=== PATIENT | female | born 1985 | race Caucasian/White ===

== ENCOUNTER 2024-03-26 18:35 | Emergency (ER) | payer OTHER, SELFPAY ==
--- NOTE | ~2024-03-26 | CT_ITS ---
EXAMINATION: CT abdomen pelvis wo con DATE: 03/26/2024 19:33 INDICATION: Bladder stones presenting with urinary symptoms TECHNIQUE: Computed tomography (CT) of the abdomen and pelvis was performed without intravenous contr ast. Automated exposure control and iterative reconstruction technique were employed. The dose-length product was 1588.18 mGy-cm. COMPARISON: None FINDINGS: Minimal discoid atelectasis at the lingula, right middle and left lower lobes. Heart size is normal. Atherosclerotic coronary artery calcifications likely also with stenting along the right coronary art ruddy. No pericardial or pleural effusion. Cholecystectomy clips the gallbladder fossa. Liver, spleen, pancreas and bilateral adrenal glands are normal. Kidneys and ureters are normal with no urolithiasis , hydroureteronephrosis or perinephric/ureteral stranding. Bladder is normal. IUD in expected positio n within the anteverted uterus. Bilateral ovaries are unremarkable. Bowels including the appendix are normal. No free intraperitoneal gas or fluid. No pathologically enlarged abdominal or pelvic lymphad enopathy. Mild thoracic and lumbar spondylosis. IMPRESSION: 1. No acute intra-abdominal/pelvic process. 2. IUD in expected position within the anteverted uterus. Reviewed, dictated and finalized at location A.
[2024-03-26 18:37] VITALS: BP 176/97; PULSE 70; RESP 18; TEMP 36.6; O2SAT 99
[2024-03-26 19:05] LABS: Basophils Percent Auto 0.4 % (0.2-1.2); Eosinophils Absolute Auto 0.2 K/mm3 (0-0.3); Eosinophils Percent Auto 1.7 % (0-4.4); Hematocrit 39.5 % (37.0-47.0); Hemoglobin 12.8 g/dL (12.0-15.0); Immature Granulocyte Absolute 0.03 K/mm3 (0.00-0.031); Immature Granulocyte Percent A 0.3 % (0-0.5); Lymphocytes Absolute Auto 2.52 K/mm3 (0.9-3.2); Lymphocytes Percent Auto 24.4 % (18.3-44.2); Mean Corpuscular HGB Conc 32.4 g/dl (32-36); Mean Corpuscular Hemoglobin 28.6 pg (26-34); Mean Corpuscular Volume 88.4 fl (80-100); Mean Platelet Volume 10.1 fl (7.4-10.4); Monocytes Absolute Auto 0.7 K/mm3 (0.1-0.6); Monocytes Percent Auto 6.8 % (2.6-8.5); Neutrophils Absolute Auto 6.9 K/mm3 (1.3-6.7); Neutrophils Percent Auto 66.4 % (45.5-73.1); Platelet Count Result 362 k/mm3 (150-375); Red Blood Count 4.47 M/mm3 (4.2-5.4); Red Cell Distribution Width 14.3 % (11.5-14.5); White Blood Count 10.3 K/mm3 (4.5-10.0)
[2024-03-26 19:15] LABS: Bacteria Urine 2+ /hpf; Need Manual Microscopic Reviewed; Non Pathogenic Casts 0-2; RBC Urine >100 /hpf (0-2); Squamous Epithelial Cell Urine Occasional /hpf (Few)
[2024-03-26 19:18] LABS: Alanine Aminotransferase 21 U/L (6-35); Albumin Level 4.4 g/dL (3.5-5.1); Alkaline Phosphatase 121 U/L (38-126); Anion Gap 7 mmol/L (4-12); Aspartate Amino Transferase 21 U/L (14-36); Bilirubin,Total 0.5 mg/dL (0.2-1.3); Blood Urea Nitrogen 9 mg/dL (7-17); Calcium 8.8 mg/dL (8.4-10.2); Carbon Dioxide 29 mmol/L (22-30); Chloride 102 mmol/L (98-107); Estimated CRCL calculation 110 ml/min; Estimated Glomerular Filt Rate > 60; Glucose 123 mg/dL (65-110); Potassium 4.2 mmol/L (3.4-5.0); Sodium 138 mmol/L (137-145)
[2024-03-26 19:23] LABS: Appearance Urine Turbid (Clear); Bilirubin Urine 1+ (Negative); Blood Urine 2+ (Negative); Color Urine Brown (Yellow); Glucose Urine UA Negative (Negative); Ketones Urine Negative (Negative); Leukocyte Esterase Ur 2+ LEU/UL (Negative); Nitrate Urine Positive (Negative); Protein Urine 2+ mg/dL (Negative); Specific Grav Ur 1.025 (1.001-1.035); Urobilinogen Urine 0.2 mg/dL (<2.0); pH Urine 5.5 (5.0-9.0)
--- NOTE | 2024-03-26 19:23 | ED.GENADULT ---
HPI - General Adult General Chief complaint: Urogenital-Female Stated complaint: lower abdominal pain and back pain Time Seen by Provider: 03/26/24 19:16 History of Present Illness HPI narrative: This is a 38-year-old female presenting ED with chief complaint of urinary symptoms. Patient says starting yesterday she was having difficulty initiating a urine stream. She is now having pain in the suprapubic area and in her lower back. She has a history of UTIs. Patient denies fevers chills nausea vomiting or diarrhea. Related Data Allergies Allergy/AdvReac Type Severity Reaction Status Date / Time penicillin G Allergy Anaphylaxis Verified 03/26/24 18:36 [facility] Past Medical History Medical History CAD (coronary artery disease) Diabetes HTN (hypertension) Exam Narrative: APPEARANCE: No apparent distress. Head: atraumatic. EYES: EOMI, NOSE: Atraumatic NECK: Trachea midline RESPIRATORY: No increased rate of breathing CARDIOVASCULAR: RRR, ABDOMINAL: Obese, left CVA tenderness, suprapubic tenderness, rest the abdomen is soft nontender. Back exam is limited by body habitus. MUSCULOSKELETAl: No obvious deformities NEURO: Alert. Moving 4/4 extremities SKIN:: Warm, dry. Normal color PSYCHIATRIC: Normal affect Course Vital Signs Vital signs: Vital Signs Temperature 97.8 F 03/26/24 18:37 Pulse Rate 70 03/26/24 18:37 Respiratory Rate 18 03/26/24 18:37 Blood Pressure 176/97 H 03/26/24 18:37 Pulse Oximetry 99 03/26/24 18:37 Oxygen Delivery Room Air 03/26/24 18:37 Temperature 97.8 F 03/26/24 18:37 Pulse Rate 70 03/26/24 18:37 Respiratory Rate 18 03/26/24 18:37 Blood Pressure 176/97 H 03/26/24 18:37 Pulse Oximetry 99 03/26/24 18:37 Oxygen Delivery Room Air 03/26/24 18:37 Medical Decision Making [facility] Narrative Medical decision making narrative: -Course: 38-year-old female presenting with urinary symptoms. Urinalysis indicative infection. Patient has left CVA tenderness. CT abdomen pelvis unremarkable. She will be treated for pyelonephritis. -DDX includes but is not limited to: UTI, pyelo, kidney stone -Co-morbidities complicating care: Obesity hypertension diabetes high cholesterol coronary artery disease, penicillin allergy -Independent interpretation of studies: White count 10.3. Metabolic panel unremarkable. Urine indicative of infection CT abdomen pelvis unremarkable. -Interventions: Toradol, Tylenol Cipro -Shared decision making / Disposition: Discharge -RX ciprofloxacin 5 mg b.i.d. x7 days Vital Signs Vital Signs: Vital Signs Temperature 97.8 F 03/26/24 18:37 Pulse Rate 70 03/26/24 18:37 Respiratory Rate 18 03/26/24 18:37 Blood Pressure 176/97 H 03/26/24 18:37 Pulse Oximetry 99 03/26/24 18:37 Oxygen Delivery Room Air 03/26/24 18:37 Temperature 97.8 F 03/26/24 18:37 Pulse Rate 70 03/26/24 18:37 Respiratory Rate 18 03/26/24 18:37 Blood Pressure 176/97 H 03/26/24 18:37 Pulse Oximetry 99 03/26/24 18:37 Oxygen Delivery Room Air 03/26/24 18:37 Lab Data 03/26/24 18:59 03/26/24 18:59 Labs: Lab Results 03/26/24 03/26/24 Range/Units 18:59 19:00 WBC 10.3 H (4.5-10.0) K/mm3 RBC 4.47 (4.2-5.4) M/mm3 Hgb 12.8 (12.0-15.0) g/dL Hct 39.5 (37.0-47.0) % MCV 88.4 (80-100) fl MCH 28.6 (26-34) pg MCHC 32.4 (32-36) g/dl RDW 14.3 (11.5-14.5) % Plt Count 362 (150-375) k/mm3 MPV 10.1 (7.4-10.4) fl Immature Gran % (Auto) 0.3 (0-0.5) % Neut % (Auto) 66.4 (45.5-73.1) % Lymph % (Auto) 24.4 (18.3-44.2) % [place] % (Auto) 6.8 (2.6-8.5) % Eos % (Auto) 1.7 (0-4.4) % Baso % (Auto) 0.4 (0.2-1.2) % Lymph # (Auto) 2.52 (0.9-3.2) K/mm3 [place] # (Auto) 0.7 H (0.1-0.6) K/mm3 Eos # (Auto) 0.2 (0-0.3) K/mm3 Baso # (Auto) 0.0 (0.0-0.1) K/mm3 Abs Immat Gran (auto) 0.03
[2024-03-26 19:24] LABS: WBC Urine 31-50 /hpf (0-3)
[2024-03-26 19:25] LABS: Add Urine Microscopic? YES
--- NOTE | 2024-03-26 19:28 | PC.NURSE ---
Pt taken to ct at this time
--- NOTE | 2024-03-26 19:34 | PC.NURSE ---
pt returned to room 16 at this time
[2024-03-26] MEDS: ACETAMINOPHEN 500 MG TABLET 1000 MG PO (19:36)
[2024-03-26] MEDS: CIPROFLOXACIN 500 MG TAB PO (20:24)
[2024-03-26 20:25] VITALS: BP 166/78; PULSE 77; RESP 20; O2SAT 98
== END 2024-03-26 20:26 | disposition home or self-care (01) ==
PROVIDERS: Emergency Provider Emergency Medicine
DX: N12 Tubulo-interstitial nephritis, not specified as acute or chronic (principal); I25.10 Atherosclerotic heart disease of native coronary artery without angina pectoris; I10 Essential (primary) hypertension; E11.9 Type 2 diabetes mellitus without complications; E78.00 Pure hypercholesterolemia, unspecified; E66.9 Obesity, unspecified; Z68.43 Body mass index [BMI] 50.0-59.9, adult; Z97.5 Presence of (intrauterine) contraceptive device
CPT/HCPCS: 36415; 74176; 80053; 81001; 81025; 85025; 87077; 87086; 87088; 87186; 99284; A9270

== ENCOUNTER 2024-04-29 21:27 | Emergency (ER) | payer SELFPAY ==
--- NOTE | ~2024-04-29 | XR_ITS ---
XR foot LT min 3V Ordering provider: Lor Cool MD History: . glf X 1 WEEK AGO . Comparison: None. FINDINGS: BONES: No acute fracture or dislocation. JOINT SPACES: Normal. No tarsal coalition. SOFT TISSUES: Normal. Early calcaneal spur. IMPRESSION: No acute osseous abnormality left foot. Reviewed, dictated and finalized at location A.
[2024-04-29 21:29] VITALS: BP 126/71; PULSE 70; RESP 18; TEMP 36.6; O2SAT 100
[2024-04-29 22:26] VITALS: BP 125/73; PULSE 72; RESP 18; O2SAT 98
--- NOTE | 2024-04-30 00:40 | ED.LOWEXIN ---
HPI - Extremity Injury (Lower) General Chief Complaint: Extremity Injury, Lower Stated Complaint: foot pain Time Seen by Provider: 04/29/24 22:27 Source: patient Mode of arrival: ambulatory Limitations: no limitations History of Present Illness HPI Narrative: Patient is a 38 y/o female who presents to the ED with c/o L foot pain. patient reports she had a ground level fall around 1 week ago in which her left foot bent backwards underneath of her. She has had pain to the top of her left foot since then. She has been taking Aleve at home without much relief. She is able to ambulate, but has discomfort with this. she reports intermittent swelling. She denies ankle pain, knee pain. Denies numbness. Related Data Home Medications Medication Instructions Recorded Confirmed atorvastatin 80 mg tablet mg 04/29/24 [facility] sugar diagnostic [facility] 04/29/24 04/29/24 Ultra Test strips) blood-glucose meter ([facility] 04/29/24 04/29/24 Ultra2 Meter) clopidogrel 75 mg tablet mg 04/29/24 folic acid 1 mg tablet 04/29/24 isosorbide mononitrate 60 mg mg PO 04/29/24 tablet,extended release 24 hr lancets 33 gauge (OneTouch Delica 04/29/24 04/29/24 Plus Lancet) levothyroxine 75 mcg tablet mcg 04/29/24 metformin 500 mg tablet,extended mg PO 04/29/24 release 24 hr metoprolol tartrate 50 mg tablet mg 04/29/24 nitroglycerin 0.4 mg sublingual mg 04/29/24 tablet spironolactone 25 mg tablet mg 04/29/24 tirzepatide 5 mg/0.5 mL mg subcut 04/29/24 subcutaneous pen injector (Mounjaro) Allergies Allergy/AdvReac Type Severity Reaction Status Date / Time penicillin G Allergy Anaphylaxis Verified 04/29/24 21:31 Review of Systems Review of Systems: CONSTITUTIONAL: Denies fever, chills, or sweats. MUSCULOSKELETAL: See HPI. NEUROLOGIC: Denies headache, dizziness, numbness, or weakness. All systems reviewed & are unremarkable except as noted in HPI and below PMFSH Past Medical History Medical History CAD (coronary artery disease) Diabetes HTN (hypertension) Exam Narrative: GENERAL: Well appearing, morbidly obese with BMI of 54.7, non-toxic, in no acute distress. HEAD: Normocephalic, atraumatic. RESPIRATORY: Airway patent, respirations nonlabored. CARDIOVASCULAR: Regular rate and rhythm without murmurs, rubs, or gallops. Pedal pulses intact. MUSCULOSKELETAL: Moves all extremities. No gross deformities. Mild tenderness over dorsal lateral L foot. No significant swelling. Sensation intact. Capillary refill intact perineum no tenderness over medial or lateral malleoli of ankle. No calf tenderness or calf swelling. SKIN: Warm, dry, normal color. NEURO: A&O X3. Speech clear. PSYCHIATRIC: Appropriate mood and affect. Normal interaction. Course Vital Signs Vital signs: Vital Signs Temperature 97.8 F 04/29/24 21:29 Pulse Rate 70 04/29/24 21:29 Respiratory Rate 18 04/29/24 21:29 Blood Pressure 126/71 04/29/24 21:29 Pulse Oximetry 100 04/29/24 21:29 Oxygen Delivery Room Air 04/29/24 21:29 Temperature 97.8 F 04/29/24 21:29 Pulse Rate 66 04/30/24 01:10 Respiratory Rate 18 04/30/24 01:10 Blood Pressure 130/86 04/30/24 01:10 Pulse Oximetry 99 04/30/24 01:10 Oxygen Delivery Room Air 04/29/24 21:29 MDM - Extremity Injury (Lower) MDM Narrative Medical decision making narrative: Patient?s injury is consistent with musculoskeletal etiology. No signs of neurologic or vascular compromise on physical examination. Compartments are soft without signs of compartment syndrome. XR of L foot negative for acute fracture. No tenderness throughout ankle, lower leg, knee. Pain is consistent with foot sprain. Patient is felt to be stable for discharge home and further outpatient management and treatment. Given john bandage, pain control in the ED. Discussed RICE therapy, continuing Tylenol/ ibuprofen
[2024-04-30] MEDS: HYDROcodone/acetaminophen (*CRX) 5-325 MG TABLET 1 TAB PO (01:07)
[2024-04-30 01:10] VITALS: BP 130/86; PULSE 66; RESP 18; O2SAT 99
== END 2024-04-30 01:10 | disposition home or self-care (01) ==
PROVIDERS: Emergency Provider Physician Assistant
DX: S93.602A Unspecified sprain of left foot, initial encounter (principal); I25.10 Atherosclerotic heart disease of native coronary artery without angina pectoris; E11.9 Type 2 diabetes mellitus without complications; I10 Essential (primary) hypertension; Z79.899 Other long term (current) drug therapy; W18.30XA Fall on same level, unspecified, initial encounter
CPT/HCPCS: 73630; 99283; A9270

== ENCOUNTER 2024-06-19 14:31 | Emergency (ER) | payer SELFPAY ==
--- NOTE | ~2024-06-19 | XR_ITS ---
XR chest 1V portable Ordering provider: Julio César Beyer MD History: 38 years Female with . cough x sob for a week . Comparison: None. FINDINGS: MEDIASTINUM: The cardiac silhouette is not enlarged. Prominent chilo with congestion. LUNGS: No effusions or pneumothorax. Bilateral basal opacification suggestive of pneumonia. OTHER: No free air under the diaphragm. IMPRESSION: Bilateral basal pneumonia. Reviewed, dictated and finalized at location A. IMPRESSION: Bilateral basal pneumonia.
[2024-06-19 14:31] VITALS: BP 146/85; PULSE 77; RESP 22; TEMP 36.6; O2SAT 98
[2024-06-19 14:45] VITALS: O2SAT 98
--- NOTE | 2024-06-19 15:15 | ED.GENADULT ---
HPI - General Adult General Chief complaint: Upper Respiratory Infection Stated complaint: cough/URI Time Seen by Provider: 06/19/24 14:41 History of Present Illness HPI narrative: 38-year-old female presented to the emergency department for evaluation 9 days of cough congestion. Patient states she has been having low-grade fever but no fever today. Patient did not check COVID. Patient states that she has been having increased cough congestion. Patient does report a prior cardiac history Related Data Home Medications Medication Instructions Recorded Confirmed atorvastatin 80 mg tablet mg 04/29/24 blood sugar diagnostic ([facility] 04/29/24 04/29/24 Ultra Test strips) blood-glucose meter (OneTouch 04/29/24 04/29/24 Ultra2 Meter) clopidogrel 75 mg tablet mg 04/29/24 folic acid 1 mg tablet 04/29/24 isosorbide mononitrate 60 mg mg PO 04/29/24 tablet,extended release 24 hr lancets 33 gauge (OneTouch Delica 04/29/24 04/29/24 Plus Lancet) levothyroxine 75 mcg tablet mcg 04/29/24 metformin 500 mg tablet,extended mg PO 04/29/24 release 24 hr metoprolol tartrate 50 mg tablet mg 04/29/24 nitroglycerin 0.4 mg sublingual mg 04/29/24 tablet spironolactone 25 mg tablet mg 04/29/24 tirzepatide 5 mg/0.5 mL mg subcut 04/29/24 subcutaneous pen injector (Vanessa) Allergies Allergy/AdvReac Type Severity Reaction Status Date / Time penicillin G Allergy Anaphylaxis Verified 04/29/24 21:31 Review of Systems Review of Systems: All systems reviewed & are unremarkable except as noted in HPI and below PMFSH Past Medical History Medical History CAD (coronary artery disease) Diabetes HTN (hypertension) Exam Narrative: APPEARANCE: Well appearing, no pain, no distress, well-nourished. HEAD: normocephalic, atraumatic. EYES: PERRLA/EOMI, conjunctivae clear. NOSE: Normal no drainage EARS:TMS clear with good light reflex. THROAT: Pharynx clear, no exudate. NECK: Supple. No adenopathy, no masses. RESPIRATORY: Rhonchi and some expiratory wheeze bilaterally CARDIOVASCULAR: Regular rate and rhythm without murmurs rubs or gallops. ABDOMINAL: Soft, nontender, nondistended, normal bowel sounds MUSCULOSKELETAL: Moves all extremities. Strength/ROM intact, No edema, No calf tenderness. NEURO: Alert. Cranial nerves II through XII intact. Grossly intact SKIN: Warm, dry. Normal Color Course Vital Signs Vital signs: Vital Signs Temperature 97.9 F 06/19/24 14:31 Pulse Rate 77 06/19/24 14:31 Respiratory Rate 22 H 06/19/24 14:31 Blood Pressure 146/85 H 06/19/24 14:31 Pulse Oximetry 98 06/19/24 14:31 Oxygen Delivery Room Air 06/19/24 14:31 Temperature 97.9 F 06/19/24 14:31 Pulse Rate 81 06/19/24 16:03 Respiratory Rate 19 06/19/24 16:03 Blood Pressure 133/89 06/19/24 16:03 Pulse Oximetry 98 06/19/24 16:03 Oxygen Delivery Room Air 06/19/24 14:45 Medical Decision Making MDM Narrative Medical decision making narrative: 38-year-old female presenting to the emergency department for evaluation for cough and congestion. Chest x-ray was concerning for bilateral pneumonia patient was started on antibiotics in the emergency department. Patient was negative for influenza RSV and for COVID. Patient was updated results of the workup was comfortable the plan for discharge and close follow-up. Differential Diagnosis Differential Diagnosis: COVID, RSV, influenza, pneumonia, pneumothorax, pleural effusion, pulmonary edema Vital Signs Vital Signs: Vital Signs Temperature 97.9 F 06/19/24 14:31 Pulse Rate 77 06/19/24 14:31 Respiratory Rate 22 H 06/19/24 14:31 Blood Pressure 146/85 H 06/19/24 14:31 Pulse Oximetry 98 06/19/24 14:31 Oxygen Delivery Room Air 06/19/24 14:31 Temperature 97.9 F 06/19/24 14:31 Pulse Rate 81 06/19/24 16:03 Respiratory Rate 19 06/19/24 16:03 Blo
[2024-06-19 15:31] LABS: Influenza A QL RT-PCR Negative (Negative); Influenza B QL RT-PCR Negative (Negative); RSV RNA, RT-PCR Negative (Negative); SARS-CoV-2 RNA PCR Negative (Negative)
[2024-06-19 15:33] VITALS: PULSE 65; RESP 20
[2024-06-19] MEDS: ALBUTEROL SULFATE NEB 2.5 MG/3 ML INH INHALATION (15:33)
[2024-06-19 15:41] VITALS: PULSE 65; RESP 20
[2024-06-19 16:03] VITALS: BP 133/89; PULSE 81; RESP 19; O2SAT 98
== END 2024-06-19 16:05 | disposition home or self-care (01) ==
PROVIDERS: Emergency Provider Emergency Medicine
DX: J18.9 Pneumonia, unspecified organism (principal); Z20.822 Contact with and (suspected) exposure to COVID-19; I25.10 Atherosclerotic heart disease of native coronary artery without angina pectoris; E11.9 Type 2 diabetes mellitus without complications; I10 Essential (primary) hypertension; Z79.84 Long term (current) use of oral hypoglycemic drugs
CPT/HCPCS: 71045; 87637; 94640; 99283

== ENCOUNTER 2025-09-25 23:31 | Emergency (ER) | payer OTHER, SELFPAY ==
--- NOTE | 2025-09-26 | ED_ITS ---
HPI - Skin/Abscess/Foreign Bdy General Chief complaint: Skin/Abscess/Foreign Body Stated complaint: skin abscess Time Seen by Provider: 09/25/25 23:53 History of Present Illness HPI narrative: 40-year-old female presenting to the ER for evaluation of a possible bug bite or infection to her right upper extremity. Patient states she was in her usual state of health but this evening noticed that she had 2 pinpoint areas of potential bug bites verses skin infection in her right outer aspect of her upper extremity that were causing her some pain and feeling throbbing. Endorses some minor redness around the area but no itchiness or bleeding. Does not remember getting bit by anything particularly. no traumatic injuries. No other localized pain or lesions. denies any systemic symptoms such as fever, chills, sore throat, nausea, vomiting, difficulty breathing or chest pain. Was otherwise in her normal state of health. Related Data Home Medications ?Medication ?Instructions ?Recorded ?Confirmed ?Last Taken ?Type atorvastatin 80 mg tablet mg 04/29/24 Unknown History blood sugar diagnostic (OneTouch 04/29/24 04/29/24 Un known History Ultra Test strips) blood-glucose meter ([facility] 04/29/24 04/29/24 Unkno wn History Ultra2 Meter) clopidogrel 75 mg tablet mg 04/29/24 Unknown History folic acid 1 mg tablet 04/29/24 Unknown History isosorbide mononitrate 60 mg mg PO 04/29/24 Unknown H istory tablet,extended release 24 hr lancets 33 gauge (OneTouch Delica 04/29/24 04/29/24 U nknown History Plus Lancet) levothyroxine 75 mcg tablet mcg 04/29/24 Unknown Hist ory metformin 500 mg tablet,extended mg PO 04/29/24 Unkno wn History release 24 hr metoprolol tartrate 50 mg tablet mg 04/29/24 Unknown History nitroglycerin 0.4 mg sublingual mg 04/29/24 Unknown H istory tablet spironolactone 25 mg tablet mg 04/29/24 Unknown Histo ry tirzepatide 5 mg/0.5 mL mg subcut 04/29/24 Unknown History subcutaneous pen injector (Vanessa) Allergies Allergy/AdvReac Type Severity Reaction Status Date / Time penicillin G Allergy Anaphylaxis Verified 04/29/24 21:31 Review of Systems Review of Systems: As reviewed above in HPI All systems reviewed & are unremarkable except as noted in HPI and below PMFSH Past Medical History Medical History CAD (coronary artery disease) Diabetes HTN (hypertension) Exam Narrative: GENERAL: [Well-appearing, well-nourished, and in no acute distress.] HEAD: [Normocephalic, atraumatic.] EYES: [PERRLA and EOMI.] ENT: Nares clear, no rhinorrhea or epistaxis. Mucous membranes moist. NECK: Supple. CHEST: [Clear to auscultation. No respiratory distress.] HEART: [Regular rate and rhythm]. No murmur heard. [Normal peripheral pulses.] ABDOMEN: [Soft, nondistended], [nontender], [No rigidity or guarding] EXTREMITIES: Normal range of motion. [No edema.] SKIN: On the outer aspect of her distal right upper extremity laterally there are 2 areas of induration and small del angel from potential bug bites. Minimally surrounding erythema but no streaking redness. No purulent drainage or discharge. No asymmetry to the upper extremities. No swelling. 2+ radial pulses warm extremity. NEURO: [No focal deficits]. Alert and oriented [x3.] PSYCH: [Normal mood and affect.] Course Vital Signs Vital signs: Vital Signs Pulse Rate 75 09/26/25 00:16 Respiratory Rate 19 09/26/25 00:16 Pulse Oximetry 97 09/26/25 00:16 Oxygen Delivery Room Air 09/26/25 00:16 Pulse Rate 71 09/26/25 00:21 Respiratory Rate 15 09/26/25 00:21 Blood Pressure 138/58 L 09/26/25 00:21 Pulse Oximetry 98 09/26/25 00:21 Oxygen Delivery Room Air 09/26/25 00:16 MDM - Skin/Abscess/Foreign Bdy MDM Narrative Medical decision making narrative: 40-year-old female presenting to the ER for evaluation of a possible bug bite or infection to her right upper extremity. Patient states she was in her usual state of health but this evening noticed that she had 2 pinpoint areas of potential puncture verses bug bite in her right outer aspect of her upper extremity that were causing her some pain and feeling throbbing. Endorses some minor redness around the area but no itchiness or bleeding. Does not remember getting bit by anything particularly. no traumatic injuries. No other localized pain or lesions. denies any systemic symptoms such as fever, chills, sore throat, nausea, vomiting, difficulty breathing or chest pain. Was otherwise in her normal state of health. On the outer aspect of her distal right upper extremity laterally there are 2 areas of induration and small del angel from potential bug bites. Minimally surrounding erythema but no streaking redness. No purulent drainage or discharge. No asymmetry to the upper extremities. No swelling. 2+ radial pulses warm extremity. Patient has normal vital signs and afebrile and overall well-appearing. Will treat as most likely bug bite with some potential for johana y cellulitis given the redness. Given Keflex Naproxen and Tylenol. Safely discharged with regimen. Given return precautions follow-up instructions. Medical Records Attestation: I reviewed the patient's medical records. Discharge Plan Discharge Clinical Impression: Bug bite Patient Disposition: Home Condition: Stable Instructions: Antibiotic Form, Insect Bite or Sting (ED) Additional Instructions: The 2 areas in your right upper extremity look like they could have been recent bug bites. given the redness and pain we will treat this with antibiotics for short course. Take Tylenol and NSAIDs every 6-8 hours for fever and pain control. Take medications as prescribed and return with any emergent concerns otherwise follow-up with regular doctor regarding this. Patient Language: [place]ian Prescriptions: New cephalexin 500 mg capsule 500 mg PO Q12H 5 Days Qty: 10 0RF No Action ibuprofen 800 mg tablet 800 mg PO TID PRN (Reason: pain) 7 Days Qty: 21 0RF acetaminophen 500 mg tablet 1,000 mg PO TID PRN (Reason: epifanio) 7 Days Qty: 42 0RF ciprofloxacin HCl [Cipro] 500 mg tablet 500 mg PO Q12H Qty: 14 0RF cefpodoxime 200 mg tablet 200 mg PO BID Qty: 14 0RF Rx Instructions: must administer with a meal/food azithromycin 250 mg tablet See Rx Instructions .ROUTE .COMPLEX Qty: 6 0RF Rx Instructions: For 250 mg dose pack: take 500 mg today (day 1), then 250 mg for 4 days (days 2-5) atorvastatin 80 mg tablet (DME) blood-glucose meter [OneTouch Ultra2 Meter] Misc MISCELLANEOUS clopidogrel 75 mg tablet (DME) OneTouch Ultra Test Strip MISCELLANEOUS spironolactone 25 mg tablet levothyroxine 75 mcg tablet isosorbide mononitrate 60 mg tablet extended release 24 hr PO metoprolol tartrate 50 mg tablet nitroglycerin 0.4 mg tablet, sublingual folic acid 1 mg tablet metformin 500 mg tablet extended release 24 hr PO (DME) lancets [OneTouch Delica Plus Lancet] 33 gauge misc MISCELLANEOUS Mounjaro 5 mg/0.5 mL Pen Injector SUBCUT Follow-up/Referrals: UNKNOWN,DOCTOR [Non-Staff]
--- OUTSIDE RECORDS SUMMARY | 2025-09-26 00:12 | XMS_ITS | Encounter Summary ---
Author Organization [facility] Address [address] [place] [address] Care Team Providers Care Pediatric Clinical Nurse Specialist Name Role Phone Aris Justin MD Unavailable [phone] Zina Butt PA Unavailable [phone] Macy Law TAILOR FITTER Unavailable [phone] Ruby Solomon APRN Primary Care Provider + [phone] Encounter Details Date Type Department Care Team (Late st Contact Info) Description 07/27/2025 Results Follow-Up [facility] Medical Group Family & Internal Medicine [facility] [address] [place] [address] [place] [address] [place] [address] STREP A RAPID, CULTURE STREP A Social History Tobacco Use Types Packs/Day Years Used Date Smoking Tobacco: Former Cigarettes 1 14 0 07/2001 - 07/2015 Passive Smoke Exposure: Past Smokeless Tobacco: Never Alcohol Use Standard Drinks/Week Comments Yes 0 (1 standard drink = 0.6 oz pur e alcohol) socially Humiliation, Afraid, Rape, and Kick questionnair e Answer Date Recorded Fear of Current or Ex-Partner No Emotionally Abused No 02/20/2020 Physically Abused No 02/20/2020 Sexually Abused No 02/20/2020 AUDIT-C Answer Date Recorded Frequency of Alcohol Consumption Not on file 10/11/2020 Q2: How many drinks containi ng alcohol do you have on a typical day when you are drinking? 1 or 2 10/11/2020 Frequency of Binge Drinking Not on file 05/2020 Overall Financial Resource Strain (CARDIA) Answe r Date Recorded Difficulty of Paying Living Expenses Not hard at all 02/20/2020 PHQ-2 Answer Date Recorded Patient Health Questionnaire-2 Score 2 12/30/2024 [facility] of Occupat ional [facility] - Occupational Stress Questionnaire Answer Date Recorded Feeling of Stress To some extent 02/20/2020 Exercise Vital Sign Answer Date Recorde d Days of Exercise per Week 3 days 2019 Minutes of Exercise per Session 60 min 02/20/2020 Hunger Vital Sign Answer Date Recorded Worried About Running Out of Food in the Last Ye ar Never true 02/20/2020 Ran Out of Food in the Last Year Never true 02/20/2020 PRAPARE - Transportation Answer Date Re corded Lack of Transportation (Medical) No 02/20/2020 Lack of Transportation (Non-Medical) No 02/20/2020 Education Answer Date Recorded What is the highest level of school you have completed or the highest degree you have received? Some college, no degree 05/19/2019 Comments No Sex and Gender Information Value Date Recorded Sex Assigned at Female 10/23/2023 5:08 PM E LEARNING COORDINATOR Legal Sex Female 12:47 AM CDT Gender Identity Female 10/23/2023 5:08 PM E LEARNING COORDINATOR Sexual Orientation Straight 10/23/2023 5: 08 PM E LEARNING COORDINATOR Occupation Industry Job Start Date Job End Date Not on file Not on file Not on file Not on file documented as of this encounter Functional Status * RETIRED Are you deaf or do you have serious difficulty hearing Answer Date of Assessment Author Status No 02/20/2020 11:51 PM CDT Acti ve * RETIRED Are you blind or do you have serious difficulty seeing, even when wearing glasses? Answer Date of Assessment Author Status No 02/20/2020 11:51 PM CDT Acti ve * Do you have serious difficulty walking or climbing stairs? Answer Date of Assessment Author Status No 02/20/2020 11:51 PM CDT Hue Wyatt R N Active * Do you have difficulty dressing or bathing? Answer Date of Assessment Author Status No 02/20/2020 11:51 PM CDT Hue Wyatt R N Active * Because of a physical, mental, or emotional condition, do you have difficulty doing errands alone such as visiting a doctor's office or shopping? Answer Date of Assessment Author Status No 02/20/2020 11:51 PM Hue Molina R N Active documented as of this encounter Mental Status * Because of a physical, mental, or emotional condition, do you have serious difficulty concentrating, remembering, or making decisions? Answer Entry Date Author Status No 02/20/2020 11:51 PM CDHue Castellano R N Active documented in this encounter Plan of Treatment Upcoming Encounters Date Type Department Care Team (Late st Contact Info) Description 10/05/2025 10:55 AM E LEARNING COORDINATOR Allied Health/Nurse Visit [facility], [facility] [address] [place] [address] Aris Justin MD [facility]. [facility] [address] [place], [place] [id number] 11/13/2025 9:20 AM E LEARNING COORDINATOR Office Visit [facility] Medical Group Family & Internal Medicine - [place] [address] [place] [address] Ruby Solomon APRN [address] [address] 12/28/2025 9:30 AM E LEARNING COORDINATOR Office Visit [facility] [address] [place] [phone] Radha Loza FNP 3 [facility] [address] [place], [place] [id number] documented as of this encounter Visit Diagnoses Not on filedocumented in this encounter Additional Health Concerns Assessment Noted Time PHQ-9 Depression Total Score: 11 12/30/ 025 11:55 AM E LEARNING COORDINATOR documented as of this encounter Care Teams Pediatric Clinical Nurse Specialist Relationship Specialty Start Date End Date Ruby Solomon APRN [address] [facility] [address] [place] [address] PCP - General NURSE PRACTITIONER 12/27/22 Aris Justin MD [facility]. [address] [address] [place] Log Sorter CARDIOVASCULAR DISEASE 05/06/16 Zina Butt, PA Three [facility]. [facility] [address] [place] [address] GYNECOLOGY 03/09/18 Macy Law FNP [address] [place] [address] Psychiatry 03/09/18 documented as of this encounter
--- OUTSIDE RECORDS SUMMARY | 2025-09-26 00:12 | XMS_ITS | Encounter Summary ---
Author Organization [facility] Address [address] [place] [address] Care Team Providers Care Mat Weaver Name Role Phone Cait Hoover MD Primary Care Provider + [phone] Aris Justin MD Unavailable [phone] Zina Butt PA Unavailable [phone] Macy Law SKIN TANNER Unavailable [phone] Carl Vasquez MD Primary Care Provider [phone] Cait Hoover MD Primary Care Provider + [phone] Ruby Solomon APRN Primary Care Provider + [phone] Encounter Details Date Type Department Care Team (Late st Contact Info) Description 08/08/2016 Abstract [facility] AT [address] [address] Suazn Gee MA Social History Tobacco Use Types Packs/Day Years Used Date Smoking Tobacco: Former Cigarettes Q uit: 07/2015 Smokeless Tobacco: Never Alcohol Use Standard Drinks/Week Comments No 0 (1 standard drink = 0.6 oz pur e alcohol) Comments Unknown Sex and Gender Information Value Date Recorded Sex Assigned at Female 10/23/2023 5:08 PM SENIOR SALES OPERATIONS ANALYST Legal Sex Female 12:47 AM CDT Gender Identity Female 10/23/2023 5:08 PM SENIOR SALES OPERATIONS ANALYST Sexual Orientation Straight 10/23/2023 5: 08 PM SENIOR SALES OPERATIONS ANALYST Occupation Industry Job Start Date Job End Date Student Not on file Not on file Not on file documented as of this encounter Plan of Treatment Upcoming Encounters Date Type Department Care Team (Late st Contact Info) Description 10/05/2025 10:55 AM SENIOR SALES OPERATIONS ANALYST Allied Health/Nurse Visit [facility] THREE [facility] [place] [address] [place] [address] Aris Justin MD Three [facility]. [facility] [address] [place] [address] 11/13/2025 9:20 AM SENIOR SALES OPERATIONS ANALYST Office Visit [facility] Medical Group Family & Internal Medicine - [place] [address] [place] [address] Ruby Solomon APRN [address] [id number] 12/28/2025 9:30 AM SENIOR SALES OPERATIONS ANALYST [facility] [address] [place] [phone] Radha Loza FNP 3 [facility] [address] [place] [address] documented as of this encounter Procedures Procedure Name Priority Date/Time Associated Diagnosis Comments CBC (OUTSIDE LAB) Routine 10/01/2016 BNP Routine 10/01/2016 COMPREHENSIVE METABOLIC PANEL Routine 10/01/2016 MAGNESIUM Routine 10/01/2016 CK (CPK) Routine 10/01/2016 LIPID PANEL Routine 07/17/2016 documented in this encounter Results * MAGNESIUM (10/01/2016) MAGNESIUM 1.8 10/01/2016 [facility] Abstract LABORATORY Final Result * BNP (10/01/2016) Pathologist [facility] B TYPE NATRIURETIC PEPTIDE <5.0 10/01/2016 [facility] Abstract LABORATORY Final Result * CK (CPK) (10/01/2016) Pathologist [facility] CPK 124 10/01/2016 [facility] Abstract LABORATORY Final Result * COMPREHENSIVE METABOLIC PANEL (10/01/2016) [facility] SODIUM S/P/B 136 POTASSIUM S/P/B 4.6 CO2 24 CHLORIDE S/P/B 96 GLUCOSE 208 CALCIUM S/P/B 9.4 BUN 11 CREATININE S/P/B 0.76 0.5 - 1.0 EGFR AFR. AMER. >60 <=90 EGFR NON-AFR. AMER. >60 <=90 ALKALINE PHOSPHATASE S/P/B 124 ALT 19 AST 19 BILIRUBIN TOTAL S/P/B 0.2 ALBUMIN S/P/B 4.4 3.5 - 5.0 GLOBULIN 2.6 10/01/2016 [facility] Abstract LABORATORY Final Result * CBC (OUTSIDE LAB) (10/01/2016) Pathologist [facility] WBC 11.0 HGB 12.8 HCT 38.5 PLT 342 10/01/2016 [facility] Abstract LAB-OUTSIDE/ABSTRACTED Final Result * LIPID PANEL (07/17/2016) Pathologist [facility] CHOLESTEROL 122 HDL 36 TRIGLYCERIDES 86 NON HDL CHOLESTEROL 86 LDL (CALCULATED) 69 07/17/2016 [facility] Abstract LABORATORY Final Result documented in this encounter Visit Diagnoses Not on filedocumented in this encounter Additional Health Concerns Infection Onset Date Last Indicated Resolved Time COVID-19 Rule Out 09/21/2023 09/21/2023 09/21/2023 1:43 PM SENIOR SALES OPERATIONS ANALYST COVID-19 Rule Out 09/22/2024 09/22/2024 09/22/2024 1:08 PM SENIOR SALES OPERATIONS ANALYST COVID-19 Rule Out 12/02/2024 12/02/2024 12/02/2024 11:49 AM SENIOR SALES OPERATIONS ANALYST Respiratory Rule Out 04/08/2025 04/08/2025 025 2:24 PM CDT documented as of this encounter Care Teams Mat Weaver Relationship Specialty Start Date End Date Cait Hoover MD PCP - General INTERNAL MEDICINE 04/13/16 01/04/20 Carl Vasquez MD [address] [place] [phone] PCP - General FAMILY PRACTICE 01/05/20 02/19/20 Cait Hoover MD [address] [place] [phone] PCP - General INTERNAL MEDICINE 02/20/20 12/26/22 Ruby Solomon APRN [address] [address] PCP - General NURSE PRACTITIONER 12/27/22 Aris Justin MD [facility]. [address] [address] [place] [facility] Specialist CARDIOVASCULAR DISEASE 05/06/16 Zina Butt, PA [facility] [address] [place] [address] GYNECOLOGY 03/09/18 Macy Law FNP [address] [address] [place] [address] Psychiatry 03/09/18 documented as of this encounter
--- OUTSIDE RECORDS SUMMARY | 2025-09-26 00:12 | XMS_ITS | Encounter Summary ---
Author Organization [facility] Address [address] [place] [address] Care Team Providers Care Receiver/Laborer Name Role Phone Aris Justin MD Unavailable [phone] Zina Butt PA Unavailable [phone] Macy Law LEAD SYSTEMS ENGINEER Unavailable [phone] Ruby Solomon APRN Primary Care Provider + [phone] Encounter Details Date Type Department Care Team (Late st Contact Info) Description 09/21/2025 Results Follow-Up [facility] Medical Group Family & Internal Medicine [facility] [address] [place] [address] [place] [address] [place] [address] XR FOOT RT 3V, XR ANKLE RT M3V Social History Tobacco Use Types Packs/Day Years [...] Recorded Patient Health Questionnaire-2 Score 2 12/30/2024 [facility] of Occupat ional Health - Occupational Stress Questionnaire Answer Date Recorded [...] Sex Assigned at Female 10/23/2023 5:08 PM SPANISH MEDICAL INTERPRETER Legal Sex Female 12:47 AM CDT Gender Identity Female 10/23/2023 5:08 PM SPANISH MEDICAL INTERPRETER Sexual Orientation Straight 10/23/2023 5: 08 PM SPANISH MEDICAL INTERPRETER Occupation Industry Job Start Date Job End [...] Assessment Author Status No 02/20/2020 11:51 PM CDHue Castellano R N Active documented as of this encounter Mental Status * Because of a physical, mental, or emotional condition, do you have serious difficulty concentrating, remembering, or making decisions? Answer Entry Date Author Status No 02/20/2020 11:51 PM CDT Hue Wyatt R N Active documented in this encounter Plan of Treatment Upcoming Encounters Date Type Department Care Team (Late st Contact Info) Description 10/05/2025 10:55 AM SPANISH MEDICAL INTERPRETER Allied Health/Nurse Visit [facility] [place], [facility] [address] [place] [address] Aris Justin MD [facility]. [facility] [address] [place], [place] [address] 11/13/2025 9:20 AM SPANISH MEDICAL INTERPRETER Office Visit [facility] Medical Group Family & Internal Medicine - [place] [address] [place] [address] Ruby Solomon APRN [address] [id number] 12/28/2025 9:30 AM SPANISH MEDICAL INTERPRETER Office Visit [facility] [address] [place] [phone] Radha Loza FNP [address] [place] [address] [address] [place], [place] [address] documented as of this encounter Visit Diagnoses Not on filedocumented in this encounter Additional Health Concerns Assessment Noted Time PHQ-9 Depression Total Score: 11 12/30/ 025 11:55 AM SPANISH MEDICAL INTERPRETER documented as of this encounter Care Teams Receiver/Laborer Relationship Specialty Start Date End Date Ruby Solomon APRN [address] [facility] [address] [place] [address] PCP - General NURSE PRACTITIONER 12/27/22 Aris Justin MD Three [facility]. [address] [address] [place] Photo Printer CARDIOVASCULAR DISEASE 05/06/16 Zina Butt PA Three [facility]. [address] [address] GYNECOLOGY 03/09/18 Macy Law FNP [address] [address] Psychiatry 03/09/18 documented as of this encounter
--- OUTSIDE RECORDS SUMMARY | 2025-09-26 00:12 | XMS_ITS | Encounter Summary ---
Author Organization [facility] Address [address] [place] [address] Care Team Providers Care Petroleum Engineer Name Role Phone Aris Justin MD Unavailable [phone] Zina Butt Unavailable [phone] Macy Law TOP TRIMMER Unavailable [phone] Ruby Solomon APRN Primary Care Provider + [phone] Encounter Details Date Type Department Care Team (Late st Contact Info) Description 01/21/2025 [employer] Message Enc [facility] Medical Group Family & Internal Medicine [facility] [address] [place] [address] Ruby Solomon APRN [address] [address] Hand swelling Social History Tobacco Use Types Packs/Day Years [...] Recorded Patient Health Questionnaire-2 Score 2 12/30/2024 [facility] of Occupat ional [facility] - Occupational Stress Questionnaire Answer Date Recorded [...] Sex Assigned at Female 10/23/2023 5:08 PM DRAFTING DETAILER Legal Sex Female 12:47 AM CDT Gender Identity Female 10/23/2023 5:08 PM DRAFTING DETAILER Sexual Orientation Straight 10/23/2023 5: 08 PM DRAFTING DETAILER Occupation Industry Job Start Date Job End [...] CDT Hue Wyatt R N Active documented as of this encounter Mental Status * Because of a physical, mental, or emotional condition, do you have serious difficulty concentrating, remembering, or making decisions? Answer Entry Date Author Status No 02/20/2020 11:51 PM CDT Hue Wyatt R N Active documented in this encounter Progress Notes * Shaka Agosto MA - 01/21/2025 9:29 AM CDT Please advise documented in this encounter Plan of Treatment Upcoming Encounters Date Type Department Care Team (Late st Contact Info) Description 10/05/2025 10:55 AM DRAFTING DETAILER Allied Health/Nurse Visit [facility] THREE [facility], [facility] [address] [place] [address] Aris Justin MD [facility]. [facility] [address] [place] [address] 11/13/2025 9:20 AM DRAFTING DETAILER Office Visit [facility] Medical Group Family & Internal Medicine - [place] [address] [place] [address] [address] Solomon [address]N [address] [facility] [address] [place], [place] [id number] 12/28/2025 9:30 AM DRAFTING DETAILER Office Visit [facility] [address] [place] [phone] Radha Loza FNP 3 [facility] [address] [place] [address] documented as of this encounter Visit Diagnoses Not on filedocumented in this encounter Additional Health Concerns Infection Onset Date Last Indicated Resolved Time Respiratory Rule Out 04/08/2025 04/08/2025 025 2:24 PM CDT Assessment Noted Time PHQ-9 Depression Total Score: 11 025 11:55 AM DRAFTING DETAILER documented as of this encounter Care Teams Petroleum Engineer Relationship Specialty Start Date End Date Ruby Solomon APRN [address] [address] PCP - General NURSE PRACTITIONER 12/27/22 Aris Justin MD [address] [address] [place] Water Well Driller CARDIOVASCULAR DISEASE 05/06/16 Zina Butt PA [address] [address] GYNECOLOGY 03/09/18 Macy Law FNP [address] [place] [address] 5 [place] [address] Psychiatry 03/09/18 documented as of this encounter
--- OUTSIDE RECORDS SUMMARY | 2025-09-26 00:12 | XMS_ITS | Encounter Summary ---
Author Organization [facility] Address [address] [place] [address] Care Team Providers Care Business Process Coordinator Name Role Phone Aris Justin MD Unavailable [phone] Zina Butt Unavailable [phone] Macy Law DROP MACHINE OPERATOR Unavailable [phone] Ruby Solomon APRN Primary Care Provider +- [phone] Encounter Details Date Type Department Care Team (Late st Contact Info) Description 08/11/2024 [employer] Message [facility] Medical Group Family & Internal Medicine [address] [address] [facility] Provider Due for appointment Social History Tobacco Use Types Packs/Day Years [...] Answer Date Recorded Patient Health Questionnaire-2 Score 0 02/13/2024 [facility] of Occupat ional Health - Occupational [...] Sex Assigned at Female 10/23/2023 5:08 PM HEALTH OUTCOMES LIAISON Legal Sex Female 12:47 AM CDT Gender Identity Female 10/23/2023 5:08 PM HEALTH OUTCOMES LIAISON Sexual Orientation Straight 10/23/2023 5: 08 PM HEALTH OUTCOMES LIAISON Occupation Industry Job Start Date Job End [...] st Contact Info) Description 10/05/2025 10:55 AM HEALTH OUTCOMES LIAISON Allied Health/Nurse Visit [facility], [address] [address] Aris Justin MD [facility]. [address] [address] 11/13/2025 9:20 AM HEALTH OUTCOMES LIAISON Office Visit [facility] Medical Group Family & Internal Medicine - [place] [address] [place] [address] Ruby Solomon APRN [address] [id number] 12/28/2025 9:30 AM HEALTH OUTCOMES LIAISON Office Visit [facility] [address] [place] [phone] Radha Loza FNP [address] [place], [place] [address] [place] [address] documented as of this encounter Visit Diagnoses Not on filedocumented in this encounter Additional Health Concerns Infection Onset Date Last Indicated Resolved Time COVID-19 Rule Out 09/22/2024 09/22/2024 09/22/2024 1:08 PM HEALTH OUTCOMES LIAISON COVID-19 Rule Out 12/02/2024 12/02/2024 12/02/2024 11:49 AM HEALTH OUTCOMES LIAISON Respiratory Rule Out 04/08/2025 04/08/2025 025 2:24 PM CDT Assessment Noted Time PHQ-9 Depression Total Score: 5 02/13/20 24 8:20 AM CDT documented as of this encounter Care Teams Business Process Coordinator Relationship Specialty Start Date End Date Ruby Solomon APRN [address] [address] PCP - General NURSE PRACTITIONER 12/27/22 Aris Justin MD [address] [address] [place] Physical Therapist Clinic Director CARDIOVASCULAR DISEASE 05/06/16 Zina Butt PA [address] [address] GYNECOLOGY 03/09/18 Macy Law FNP [address] 5 [place] [address] Psychiatry 03/09/18 documented as of this encounter
--- OUTSIDE RECORDS SUMMARY | 2025-09-26 00:12 | XMS_ITS | Encounter Summary ---
Author Organization [facility] Address [address] [place] [address] Care Team Providers Care Leave Manager Name Role Phone Aris Justin MD Unavailable [phone] Zina Butt Unavailable [phone] Macy Law CONFIGURATION MANAGEMENT ADVISOR Unavailable [phone] Ruby Solomon APRN Primary Care Provider +- [phone] Encounter Details Date Type Department Care Team (Late st Contact Info) Description 02/19/2023 [employer] Message Enc [facility] THREE [address] [address] [facility] Provider Lipid results. Social History Tobacco Use Types Packs/Day Years Used Date Smoking Tobacco: Former Cigarettes 1 14 0 07/2001 - 07/2015 Smokeless Tobacco: Never Alcohol Use Standard [...] Date Recorded Patient Health Questionnaire-2 Score 0 01/31/2023 [facility] of Occupat ional Health - Occupational Stress [...] Sex Assigned at Female 10/23/2023 5:08 PM CUSTOMER COMPLAINT CLERK Legal Sex Female 12:47 AM CDT Gender Identity Female 10/23/2023 5:08 PM CUSTOMER COMPLAINT CLERK Sexual Orientation Straight 10/23/2023 5: 08 PM CUSTOMER COMPLAINT CLERK Occupation Industry Job Start Date Job End Date Not on file Not on file Not on file Not on file COVID-19 Exposure Response Date Recorded In the last 10 days, have yo u been in contact with someone who was confirmed or suspected to have Coronavirus/COVID-19? No / Unsure 02/15/2023 9:03 AM CDT documented as of this encounter Functional Status [...] 11:51 PM Hue Molina R N Active * Because of a [...] Date Author Status No 02/20/2020 11:51 PM Hue Molina R N Active documented in this encounter Plan of Treatment Upcoming Encounters Date Type Department Care Team (Late st Contact Info) Description 10/05/2025 10:55 AM CUSTOMER COMPLAINT CLERK Allied Health/Nurse Visit [facility], [facility] [address] [place] [address] Aris Justin MD [facility]. [facility] [address] [place] [address] 11/13/2025 9:20 AM CUSTOMER COMPLAINT CLERK Office Visit [facility] Medical Group Family & Internal Medicine - [place] [address] [place] [address] Ruby Solomon APRN [address] [phone] 12/28/2025 9:30 AM CUSTOMER COMPLAINT CLERK Office [facility] [address] [place] [phone] Radha Loza FNP 3 [facility] [address] [place] [address] documented as of this encounter Visit Diagnoses Not on filedocumented in this encounter Additional Health Concerns Infection Onset Date Last Indicated Resolved Time COVID-19 Rule Out 09/21/2023 09/21/2023 09/21/2023 1:43 PM CUSTOMER COMPLAINT CLERK COVID-19 Rule Out 09/22/2024 09/22/2024 09/22/2024 1:08 PM CUSTOMER COMPLAINT CLERK COVID-19 Rule Out 12/02/2024 12/02/2024 12/02/2024 11:49 AM CUSTOMER COMPLAINT CLERK Respiratory Rule Out 04/08/2025 04/08/2025 025 2:24 PM CDT Assessment Noted Time PHQ-9 Depression Total Score: 7 11/21/19 23 4:25 PM CUSTOMER COMPLAINT CLERK documented as of this encounter Care Teams Leave Manager Relationship Specialty Start Date End Date Ruby Solomon APRN [address] [facility] [address] [place] [address] PCP - General NURSE PRACTITIONER 12/27/22 Aris Justin MD Three [facility]. [address] [address] [place] Escalator Service Mechanic CARDIOVASCULAR DISEASE 05/06/16 Zina Butt PA Three [facility]. [facility] [address] [place] [address] GYNECOLOGY 03/09/18 Macy Law FNP [address] [address] Psychiatry 03/09/18 documented as of this encounter
--- OUTSIDE RECORDS SUMMARY | 2025-09-26 00:12 | XMS_ITS | Encounter Summary ---
Author Organization [facility] Address [facility] [place] [address] Care Team Providers Care Api Architect Name Role Phone Aris Justin MD Unavailable [phone] Zina Butt Unavailable [phone] Macy Law SUPERVISOR SHEARING Unavailable [phone] Ruby Solomon APRN Primary Care Provider + [phone] Encounter Details Date Type Department Care Team (Late st Contact Info) Description 11/05/2024 [employer] Message Enc [facility] Medical Group Family & Internal Medicine [facility] [address] [place] [address] Ruby Solomon APRN [address] [address] Reflux Social History Tobacco Use Types Packs/Day Years [...] Recorded Patient Health Questionnaire-2 Score 0 02/13/2024 [facility] of Occupat ional [facility] - Occupational Stress Questionnaire Answer Date [...] Assigned at Female 10/23/2023 5:08 PM SENIOR CYTOGENETICS LABORATORY DIRECTOR Legal Sex Female 12:47 AM CDT Gender Identity Female 10/23/2023 5:08 PM SENIOR CYTOGENETICS LABORATORY DIRECTOR Sexual Orientation Straight 10/23/2023 5: 08 PM SENIOR CYTOGENETICS LABORATORY DIRECTOR Occupation Industry Job Start Date Job End [...] Author Status No 02/20/2020 11:51 PM CDT Klunk, Hue E, R N Active * Because of a [...] documented in this encounter Progress Notes * Ruby Solomon APRN - 11/16/2024 10:16 PM CST Please let me know if she would like me to place an order for Protonix to be taken daily OR CYTOGENETICS LABORATORY DIRECTOR * Ruby Solomon APRN - 11/16/2024 10:14 PM CST I would encourage her to follow-up with GI for a deeper evaluation. However, in the meantime we can consider pairing her as needed Tums and Pepcid with medication suchas Protonix OR CYTOGENETICS LABORATORY DIRECTOR * Lenny Salinas MA - 11/14/2024 11:39 AM CST Please advise OR CYTOGENETICS LABORATORY DIRECTOR documented in this encounter Plan of Treatment Upcoming Encounters Date Type Department Care Team (Late st Contact Info) Description 10/05/2025 10:55 AM SENIOR CYTOGENETICS LABORATORY DIRECTOR Allied Health[facility] [address] [id number] Aris Justin MD [facility]. [address] [address] 11/13/2025 9:20 AM SENIOR CYTOGENETICS LABORATORY DIRECTOR Office Visit [facility] Medical Group Family & Internal Medicine - [place] [address] [place] [address] Ruby Solomon APRN [address] [address] 12/28/2025 9:30 AM SENIOR CYTOGENETICS LABORATORY DIRECTOR Office Visit [facility] [address] [place] [address] Radha Loza FNP 3 [facility] [address] [place], [place] [id number] documented as of this encounter Visit Diagnoses Not on filedocumented in this encounter Additional Health Concerns Infection Onset Date Last Indicated Resolved Time COVID-19 Rule Out 12/02/2024 12/02/2024 12/02/2024 11:49 AM SENIOR CYTOGENETICS LABORATORY DIRECTOR Respiratory Rule Out 04/08/2025 04/08/2025 025 2:24 PM CDT Assessment Noted Time PHQ-9 Depression Total Score: 5 02/13/20 24 8:20 AM CDT documented as of this encounter Care Teams Api Architect Relationship Specialty Start Date End Date Ruby Soloomn APRN [address] [address] PCP - General NURSE PRACTITIONER 12/27/22 Aris Justin MD [facility]. [facility] [address] [place] [address] [place] [employer] Machine Operator CARDIOVASCULAR DISEASE 05/06/16 Zina Butt, PA [facility] [address] [place] [address] GYNECOLOGY 03/09/18 Macy Law FNP [address] [address] Psychiatry 03/09/18 documented as of this encounter
--- OUTSIDE RECORDS SUMMARY | 2025-09-26 00:12 | XMS_ITS | Encounter Summary ---
Author Organization [facility] Address [address] [place] [address] Care Team Providers Care Script Editor Name Role Phone Aris Justin MD Unavailable [phone] Zina Butt Unavailable [phone] Macy Law SENIOR QUALITY TECHNICIAN Unavailable Cait Hoover MD Primary Care Provider [phone] Ruby Solomon APRN Primary Care Provider +- [phone] Encounter Details Date Type Department Care Team (Late st Contact Info) Description 01/10/2021 Abstract [facility] [address] Suzan Gee MA Social History Tobacco Use Types [...] at all 02/20/2020 PHQ-2 Answer Date Recorded PHQ-2 Score - If the patient scores above 3, please move on to questions 3-9 1 11/29/2020 [facility] [place] of Occupat ional Health - Occupational Stress [...] Sex Assigned at Female 10/23/2023 5:08 PM CLEANING PORTER Legal Sex Female 12:47 AM CDT Gender Identity Female 10/23/2023 5:08 PM CLEANING PORTER Sexual Orientation Straight 10/23/2023 5: 08 PM CLEANING PORTER Occupation Industry Job Start Date Job End Date Not on file Not on file Not on file Not on file COVID-19 Exposure Response Date Recorded In the last month, have you been in contact with someone who was confirmed or suspected to have Coronavirus / COVID-19? Unable to assess 01/03/2021 11:38 AM CLEANING PORTER documented as of this encounter Functional Status [...] 11:51 PM CDHue Castellano R N Active * Because of a [...] st Contact Info) Description 10/05/2025 10:55 AM CLEANING PORTER Allied Health/Nurse Visit [facility], [facility] [address] [place], [place] [address] Aris Justin MD [facility]. [facility] [address] [place], [place] [address] 11/13/2025 9:20 AM CLEANING PORTER Office Visit [facility] Medical Group Family & Internal Medicine - [place] [address] [place] [address] Ruby Solomon APRN [address] [id number] 12/28/2025 9:30 AM CLEANING PORTER Office Visit [facility] [address] [place] [address] Radha Loza FNP [address] [place] [address] [address] [place], [place] [address] documented as of this encounter Procedures Procedure Name Priority Date/Time Associated Diagnosis Comments CBC (OUTSIDE LAB) Routine 01/10/2021 COMPREHENSIVE METABOLIC PANEL Routine 01/10/2021 LIPID PANEL Routine 01/10/2021 CK (CPK) Routine 01/10/2021 documented in this encounter Results * CBC (OUTSIDE LAB) (01/10/2021) WBC 7.1 HGB 12.1 HCT 37.4 PLT 325 01/10/2021 [facility] Abstract LAB-OUTSIDE/ABSTRACTED Final Result * LIPID PANEL (01/10/2021) CHOLESTEROL 105 HDL 44 TRIGLYCERIDES 69 LDL (CALCULATED) 47 01/10/2021 [facility] Abstract LABORATORY Edited Resul t - Final * CK (CPK) (01/10/2021) CPK 60 01/10/2021 us [facility] Abstract LABORATORY Edited Resul t - Final * COMPREHENSIVE METABOLIC PANEL (01/10/2021) SODIUM S/P/B 139 POTASSIUM S/P/B 3.9 CO2 27 CHLORIDE S/P/B 104 GLUCOSE 91 mg/dL CALCIUM S/P/B 9.1 BUN 11 CREATININE S/P/B 0.5 0.5 - 1.0 EGFR NON-AFR. AMER. >90 <=90 ALKALINE PHOSPHATASE S/P/B 97 ALT 16 AST 11 BILIRUBIN TOTAL S/P/B 0.6 ALBUMIN S/P/B 4.0 3.5 - 5.0 TOTAL PROTEIN S/P/B 6.3 GLOBULIN 2.3 01/10/2021 us [facility] Abstract LABORATORY Final Result documented in this encounter Visit Diagnoses Not on filedocumented in this encounter Additional Health Concerns Infection Onset Date Last Indicated Resolved Time COVID-19 Rule Out 09/21/2023 09/21/2023 09/21/2023 1:43 PM CLEANING PORTER COVID-19 Rule Out 09/22/2024 09/22/2024 09/22/2024 1:08 PM CLEANING PORTER COVID-19 Rule Out 12/02/2024 12/02/2024 12/02/2024 11:49 AM CLEANING PORTER Respiratory Rule Out 04/08/2025 04/08/2025 025 2:24 PM CDT Assessment Noted Time PHQ-9 Depression Total Score: 0 12/02/19 2:53 PM CLEANING PORTER documented as of this encounter Care Teams Script Editor Relationship Specialty Start Date End Date Cait Hoover MD [address] [place] [address] PCP - General INTERNAL MEDICINE 02/20/20 12/26/22 Ruby Solomon APRN [address] [address] PCP - General NURSE PRACTITIONER 12/27/22 Aris Justin MD [facility]. [address] [address] [place] [facility] Referral Clerk CARDIOVASCULAR DISEASE 05/06/16 Zina Butt, PA Three [facility]. [facility] [address] [place] [address] GYNECOLOGY 03/09/18 Macy Law FNP [address] [place] [address] Psychiatry 03/09/18 documented as of this encounter
--- OUTSIDE RECORDS SUMMARY | 2025-09-26 00:12 | XMS_ITS | Encounter Summary ---
Author Organization [facility] Address [address] [place] [address] Care Team Providers Care Hand Button Splitter Name Role Phone Aris Justin MD Unavailable [phone] Zina Butt PA Unavailable [phone] Macy Law REGULATORY SERVICES CONSULTANT Unavailable [phone] Ruby Solomon APRN Primary Care Provider + [phone] Encounter Details Date Type Department Care Team (Late st Contact Info) Description 08/30/2025 [employer] Message [facility] [address] [place] [address] Aris Justin MD [address] [address] [place] Social History Tobacco Use Types Packs/Day Years [...] Recorded Patient Health Questionnaire-2 Score 2 12/30/2024 [facility] - Occupational Stress Questionnaire Answer Date [...] Sex Assigned at Female 10/23/2023 5:08 PM DISPENSING AND MEASURING OPTICIAN Legal Sex Female 12:47 AM CDT Gender Identity Female 10/23/2023 5:08 PM DISPENSING AND MEASURING OPTICIAN Sexual Orientation Straight 10/23/2023 5: 08 PM DISPENSING AND MEASURING OPTICIAN Occupation Industry Job Start Date Job End [...] st Contact Info) Description 10/05/2025 10:55 AM DISPENSING AND MEASURING OPTICIAN Allied Health/Nurse Visit [facility], [facility] [address] [place], [place] [address] Aris Justin MD [facility]. [facility] [address] [place], [place] [address] 11/13/2025 9:20 AM DISPENSING AND MEASURING OPTICIAN Office Visit [facility] Medical Group Family & Internal Medicine - [place] [address] [place] [address] Ruby Solomon APRN [address] [address] 12/28/2025 9:30 AM DISPENSING AND MEASURING OPTICIAN Office Visit [place] [address] [place] [address] Radha Loza FNP 3 [facility] [address] [place], [place] [id number] documented as of this encounter Visit Diagnoses Not on filedocumented in this encounter Additional Health Concerns Assessment Noted Time PHQ-9 Depression Total Score: 11 12/30/ 025 11:55 AM DISPENSING AND MEASURING OPTICIAN documented as of this encounter Care Teams Hand Button Splitter Relationship Specialty Start Date End Date Ruby Solomon APRN [address] [facility] [address] [place] [address] PCP - General NURSE PRACTITIONER 12/27/22 Aris Justin MD [facility]. [address] [address] [place] Physicist [employer] CARDIOVASCULAR DISEASE 05/06/16 Zina Butt, PA [facility]. [address] [address] GYNECOLOGY 03/09/18 Macy Law FNP [address] [address] Psychiatry 03/09/18 documented as of this encounter
--- OUTSIDE RECORDS SUMMARY | 2025-09-26 00:12 | XMS_ITS | Encounter Summary ---
Author Organization [facility] Address [facility] [place] [address] Care Team Providers Care Termite Control Representative Name Role Phone Aris Justin MD Unavailable [phone] Zina Butt Unavailable [phone] Macy Law CARRIER PACKER Unavailable [phone] Ruby Solomon APRN Primary Care Provider + [phone] Encounter Details Date Type Department Care Team (Late st Contact Info) Description 01/08/2025 [employer] Message Enc [facility] Family & Internal Medicine [facility] [address] [place] [address] Ruby Solomon APRN [address] [address] Ear pain Social History Tobacco Use Types Packs/Day Years [...] Recorded Patient Health Questionnaire-2 Score 2 12/30/2024 [facility] of Occupat ional [facility] - Occupational Stress Questionnaire Answer Date Recorded [...] Sex Assigned at Female 10/23/2023 5:08 PM PRODUCTION MANUFACTURING WORKER Legal Sex Female 12:47 AM CDT Gender Identity Female 10/23/2023 5:08 PM PRODUCTION MANUFACTURING WORKER Sexual Orientation Straight 10/23/2023 5: 08 PM PRODUCTION MANUFACTURING WORKER Occupation Industry Job Start Date Job End [...] PM CDHue Castellano R N Active * Calculated C-SSRS Risk Score (Lifetime/Recent) Answer Date of Assessment Author Status No Risk Indicated 01/09/2025 7:23 PM PRODUCTION MANUFACTURING WORKER Ulisses Harvey RN Active * [place] Suicide Severity Rating Scale (Screener/Recent Self-Report) Question Answer Date of Assessment Author Status 1. Wish to be (Past 1 Month) No 01/09/2025 7:23 PM Roscoe Mcintosh RN Active 2. Non-Specific Active Suicidal Thoughts (Past 1 Month) No 01/09/2025 7:23 PM PRODUCTION MANUFACTURING WORKER Roscoe Harvey RN Active 6. Suicidal Behavior (Lifetime) No 01/09/2025 7:23 PM PRODUCTION MANUFACTURING WORKER Roscoe Harvey RN Active documented as of this encounter Mental Status * Because of a physical, mental, or emotional condition, do you have serious difficulty concentrating, remembering, or making decisions? Answer Entry Date Author Status No 02/20/2020 11:51 PM Hue Molina R N Active documented in this encounter Progress Notes * Ruby Solomon APRN - 01/09/2025 11:14 AM CST Advise to send to ENT for referral UCTION MANUFACTURING WORKER documented in this encounter Plan of Treatment Upcoming Encounters Date Type Department Care Team (Late st Contact Info) Description 10/05/2025 10:55 AM PRODUCTION MANUFACTURING WORKER Allied Health/[facility] [address] [address] Aris Justin MD [facility]. [place] [address] [place] [address] 11/13/2025 9:20 AM PRODUCTION MANUFACTURING WORKER Office Visit [facility] Medical Group Family & Internal Medicine [facility] [address] [place] [address] Ruby Solomon APRN [address] [address] 12/28/2025 9:30 AM PRODUCTION MANUFACTURING WORKER Office [facility] [address] [place] [address] Radha Loza FNP 3 [facility] [address] [place] [address] documented as of this encounter Visit Diagnoses Not on filedocumented in this encounter Additional Health Concerns Infection Onset Date Last Indicated Resolved Time Respiratory Rule Out 04/08/2025 04/08/2025 025 2:24 PM CDT Assessment Noted Time PHQ-9 Depression Total Score: 11 025 11:55 AM PRODUCTION MANUFACTURING WORKER documented as of this encounter Care Teams Termite Control Representative Relationship Specialty Start Date End Date Ruby Solomon APRN [address] [address] PCP - General NURSE PRACTITIONER 12/27/22 Aris Justin MD Three [facility]. [facility] [address] [place] [address] [place] [employer] Supervisor CARDIOVASCULAR DISEASE 05/06/16 Zina Butt PA Three [facility]. [facility] [address] [place] [address] GYNECOLOGY 03/09/18 Macy Law FNP [address] [address] Psychiatry 03/09/18 documented as of this encounter
--- OUTSIDE RECORDS SUMMARY | 2025-09-26 00:12 | XMS_ITS | Encounter Summary ---
Author Organization [facility] Address [address] [place] [address] Care Team Providers Care Client Services Manager Name Role Phone Aris Justin MD Unavailable [phone] Zina Butt Unavailable [phone] Macy Law FACILITIES PLANT ENGINEER Unavailable [phone] Ruby Solomon APRN Primary Care Provider + [phone] Encounter Details Date Type Department Care Team (Late st Contact Info) Description 08/23/2025 [employer] Message Enc [facility] Medical Group Family & Internal Medicine [facility] [address] [place] [address] Ruby Solomon APRN [address] [address] Yeast infection update Social History Tobacco Use Types Packs/Day Years [...] Recorded Patient Health Questionnaire-2 Score 2 12/30/2024 [facility] of Occupat ional [facility] - Occupational Stress Questionnaire Answer Date [...] Sex Assigned at Female 10/23/2023 5:08 PM FURNITURE ASSEMBLY SUPERVISOR Legal Sex Female 12:47 AM CDT Gender Identity Female 10/23/2023 5:08 PM FURNITURE ASSEMBLY SUPERVISOR Sexual Orientation Straight 10/23/2023 5: 08 PM FURNITURE ASSEMBLY SUPERVISOR Occupation Industry Job Start Date Job End [...] st Contact Info) Description 10/05/2025 10:55 AM FURNITURE ASSEMBLY SUPERVISOR Allied Health/Nurse Visit [facility], [facility] [address] [place] [address] Aris Justin MD [facility]. [facility] [address] [place], [place] [address] 11/13/2025 9:20 AM FURNITURE ASSEMBLY SUPERVISOR Office Visit [facility] Medical Group Family & Internal Medicine - [place] [address] [place] [address] Ruby Solomon APRN [address] [address] 12/28/2025 9:30 AM FURNITURE ASSEMBLY SUPERVISOR Office Visit [facility] [address] [place] [address] Radha Loza FNP 3 [facility] [address] [place], [place] [phone] documented as of this encounter Visit Diagnoses Not on filedocumented in this encounter Additional Health Concerns Assessment Noted Time PHQ-9 Depression Total Score: 11 12/30/ 025 11:55 AM FURNITURE ASSEMBLY SUPERVISOR documented as of this encounter Care Teams Client Services Manager Relationship Specialty Start Date End Date Ruby Solomon APRN [address] [facility] [address] [place] [address] PCP - General NURSE PRACTITIONER 12/27/22 Aris Justin MD [facility]. [address] [address] [employer] Senior Manager CARDIOVASCULAR DISEASE 05/06/16 Zina Butt, PA [facility]. [facility] [address] [place] [address] GYNECOLOGY 03/09/18 Macy Law FNP [address] [place] [address] Psychiatry 03/09/18 documented as of this encounter
--- OUTSIDE RECORDS SUMMARY | 2025-09-26 00:12 | XMS_ITS | Encounter Summary ---
Author Organization [facility] Address [address] [place] [address] Care Team Providers Care Motor Vehicle Operator Road Supervisor Name Role Phone Aris Justin MD Unavailable [phone] Zina Butt Unavailable [phone] Macy Law DIESEL ENGINE II PIPE FITTER Unavailable [phone] Cait Hoover MD Primary Care Provider [phone] Ruby Solomon APRN Primary Care Provider [phone] Encounter Details Date Type Department Care Team (Late st Contact Info) Description 02/24/2020 Hospital Follow-up Call [facility] Telemetry Unit [address] [place], [place] [address] Naomi Rosenthal Social History Tobacco Use Types Packs/Day Years [...] Answer Date Recorded Frequency of Alcohol Consumption Monthly or less 01/05/2020 Average Number of Drinks Not on file 020 Frequency of Binge Drinking Not on file 12/2019 Overall Financial Resource Strain (CARDIA) Answe r Date Recorded Difficulty of Paying Living Expenses Not hard at all 02/20/2020 PHQ-2 Answer Date Recorded PHQ-2 Score 0 02/02/2019 [facility] [employer] of Occupat ional Health - Occupational Stress [...] Sex Assigned at Female 10/23/2023 5:08 PM CARE MANAGER CNA Legal Sex Female 12:47 AM CDT Gender Identity Female 10/23/2023 5:08 PM CARE MANAGER CNA Sexual Orientation Straight 10/23/2023 5: 08 PM CARE MANAGER CNA Occupation Industry Job Start Date Job End Date Not on file Not on file Not on file Not on file COVID-19 Exposure Response Date Recorded In the last month, have you been in contact with someone who was confirmed or suspected to have Coronavirus / COVID-19? No / Unsure 02/20/2020 11:39 PM CDT documented as of this encounter Functional [...] st Contact Info) Description 10/05/2025 10:55 AM CARE MANAGER CNA Allied Health/Nurse Visit [facility], [facility] [address] [place] [address] Aris Justin MD [facility]. [facility] [address] [place] [address] 11/13/2025 9:20 AM CARE MANAGER CNA Office Visit [facility] Medical Group Family & Internal Medicine - [place] [address] [place] [address] Ruby Solomon APRN [address] [id number] 12/28/2025 9:30 AM CARE MANAGER CNA Office Visit [facility] [address] [place] [address] Radha Loza FNP [address] [place] [address] [address] [place] [address] documented as of this encounter Visit Diagnoses Not on filedocumented in this encounter Additional Health Concerns Infection Onset Date Last Indicated Resolved Time COVID-19 Rule Out 09/21/2023 09/21/2023 09/21/2023 1:43 PM CARE MANAGER CNA COVID-19 Rule Out 09/22/2024 09/22/2024 09/22/2024 1:08 PM CARE MANAGER CNA COVID-19 Rule Out 12/02/2024 12/02/2024 12/02/2024 11:49 AM CARE MANAGER CNA Respiratory Rule Out 04/08/2025 04/08/2025 025 2:24 PM CDT Assessment Noted Time PHQ-9 Depression Total Score: 0 12/02/19 19 2:53 PM CARE MANAGER CNA documented as of this encounter Care Teams Motor Vehicle Operator Road Supervisor Relationship Specialty Start Date End Date Cait Hoover MD [address] [address] PCP - General INTERNAL MEDICINE 02/20/20 12/26/22 Ruby Solomon APRN [address] [address] PCP - General NURSE PRACTITIONER 12/27/22 Aris Justin MD [facility]. [facility] [address] [place] [address] [place] Engine Repair Supervisor CARDIOVASCULAR DISEASE 05/06/16 Zina Butt, PA [facility]. [facility] [address] [place] [address] GYNECOLOGY 03/09/18 Macy Law FNP [address] [address] Psychiatry 03/09/18 documented as of this encounter
--- OUTSIDE RECORDS SUMMARY | 2025-09-26 00:12 | XMS_ITS | Encounter Summary ---
Author Organization [facility] Address [address] [place] [address] Care Team Providers Care Beef Splitter Name Role Phone Cait Hoover MD Primary Care Provider [phone] Aris Justin MD Unavailable [phone] Zina Butt PA Unavailable [phone] Macy Law TECHNICAL BUYER Unavailable [phone] Carl Vasquez MD Primary Care Provider [phone] Cait Hoover MD Primary Care Provider + [phone] Ruby Solomon APRN Primary Care Provider + [phone] Encounter Details Date Type Department Care Team (Late st Contact Info) Description 12/14/2017 Abstract [facility] CONVERSION [address] [place], [place] [id number] , Davidson Patel MD Social History Tobacco Use Types Packs/Day Years Used Date Smoking Tobacco: Former Cigarettes Q uit: 07/2015 Smokeless Tobacco: Never Alcohol Use Standard Drinks/Week Comments No 0 (1 standard drink = 0.6 oz pur e alcohol) Comments No Sex and Gender Information Value Date Recorded Sex Assigned at Female 10/23/2023 5:08 PM WELFARE OFFICER Legal Sex Female 12:47 AM CDT Gender Identity Female 10/23/2023 5:08 PM WELFARE OFFICER Sexual Orientation Straight 10/23/2023 5: 08 PM WELFARE OFFICER Occupation Industry Job Start Date Job End Date Not on file Not on file Not on file Not on file documented as of this encounter Plan of Treatment Upcoming Encounters Date Type Department Care Team (Late st Contact Info) Description 10/05/2025 10:55 AM WELFARE OFFICER Allied Health/Nurse Visit [facility] THREE [facility], [facility] [address] [place] [address] Aris Justin MD Three [facility]. [facility] [address] [place] [address] 11/13/2025 9:20 AM WELFARE OFFICER Office Visit [facility] Medical Group Family & Internal Medicine - [place] [address] [place] [address] Ruby Solomon APRN [address] [facility] [address] [place], [place] [id number] 12/28/2025 9:30 AM WELFARE OFFICER Office Visit [facility] [address] [place] [phone] Radha Loza FNP 3 [facility] [address] [place], [place] [id number] documented as of this encounter Visit Diagnoses Not on filedocumented in this encounter Additional Health Concerns Infection Onset Date Last Indicated Resolved Time COVID-19 Rule Out 09/21/2023 09/21/2023 09/21/2023 1:43 PM WELFARE OFFICER COVID-19 Rule Out 09/22/2024 09/22/2024 09/22/2024 1:08 PM WELFARE OFFICER COVID-19 Rule Out 12/02/2024 12/02/2024 12/02/2024 11:49 AM WELFARE OFFICER Respiratory Rule Out 04/08/2025 04/08/2025 025 2:24 PM CDT documented as of this encounter Care Teams Beef Splitter Relationship Specialty Start Date End Date Cait Hoover MD PCP - General INTERNAL MEDICINE 04/13/16 01/04/20 Carl Vasquez MD [address] [place] [address] PCP - General FAMILY PRACTICE 01/05/20 02/19/20 Cait Hoover MD [facility] [place] [address] PCP - General INTERNAL MEDICINE 02/20/20 12/26/22 Ruby Solomon APRN [address] [address] PCP - General NURSE PRACTITIONER 12/27/22 Aris Justin MD [facility]. [address] [address] [place] Mainstreaming Facilitator CARDIOVASCULAR DISEASE 05/06/16 Zina Butt PA Three [facility]. [facility] [address] [place] [address] GYNECOLOGY 03/09/18 Macy Law FNP [address] 5 [place] [address] Psychiatry 03/09/18 documented as of this encounter
--- OUTSIDE RECORDS SUMMARY | 2025-09-26 00:13 | XMS_ITS | Encounter Summary ---
Author Organization [facility] Address [address] [place] [address] Care Team Providers Care Cost Recovery Technician Name Role Phone Cait Hoover MD Primary Care Provider + [phone] Aris Justin MD Unavailable [phone] Zina Butt PA Unavailable [phone] Macy [employer] LEHR OPERATOR Unavailable [phone] Carl Vasquez MD Primary Care Provider [phone] Cait Hoover MD Primary Care Provider + [phone] Ruby Solomon APRN Primary Care Provider + [phone] Encounter Details Date Type Department Care Team (Late st Contact Info) Description 05/06/2016 Abstract [facility] AT [address] [address] Suzan Gee MA Social History Tobacco Use Types Packs/Day Years Used Date Smoking Tobacco: Former Cigarettes Q uit: 07/2015 Alcohol Use Standard Drinks/Week Comments No 0 (1 standard drink = 0.6 oz pur e alcohol) Comments Unknown Sex and Gender Information Value Date Recorded Sex Assigned at Female 10/23/2023 5:08 PM HALF SOLE FITTER Legal Sex Female 12:47 AM CDT Gender Identity Female 10/23/2023 5:08 PM HALF SOLE FITTER Sexual Orientation Straight 10/23/2023 5: 08 PM HALF SOLE FITTER Occupation Industry Job Start Date Job End Date Student Not on file Not on file Not on file documented as of this encounter Plan of Treatment Upcoming Encounters Date Type Department Care Team (Late st Contact Info) Description 10/05/2025 10:55 AM HALF SOLE FITTER Allied Health/Nurse Visit [facility] THREE [facility], [address] [place] [address] Aris Justin MD Three [facility]. [facility] [address] [place] [address] 11/13/2025 9:20 AM HALF SOLE FITTER Office Visit [facility] Medical Group Family & Internal Medicine - [place] [address] [place] [address] Ruby Solomon APRN [address] [address] 12/28/2025 9:30 AM HALF SOLE FITTER Office Visit [facility] [address] [place] [address] Radha Loza FNP 3 [facility] [address] [place] [address] documented as of this encounter Procedures Procedure Name Priority Date/Time Associated Diagnosis Comments CBC (OUTSIDE LAB) Routine 04/14/2016 BASIC METABOLIC PANEL Routine 04/14/2016 LIPID PANEL Routine 04/14/2016 documented in this encounter Results * LIPID PANEL (04/14/2016) CHOLESTEROL 113 HDL 31 TRIGLYCERIDES 135 NON HDL CHOLESTEROL 82 LDL (CALCULATED) 55 04/14/2016 [facility] Final Result * BASIC METABOLIC PANEL (04/14/2016) SODIUM S/P/B 140 POTASSIUM S/P/B 4.3 CO2 25 CHLORIDE S/P/B 102 GLUCOSE 111 CALCIUM S/P/B 9.0 BUN 10 CREATININE S/P/B 0.44 EGFR AFR. AMER. >60 EGFR NON-AFR. AMER. >60 04/14/2016 us Doc [facility] Abstract LABORATORY Final Result * CBC (OUTSIDE LAB) (04/14/2016) WBC 6.8 HGB 12.6 HCT 40.4 PLT 282 04/14/2016 us Doc [facility] Abstract LAB-OUTSIDE/ABSTRACTED Edite d Result - Final documented in this encounter Visit Diagnoses Not on filedocumented in this encounter Additional Health Concerns Infection Onset Date Last Indicated Resolved Time COVID-19 Rule Out 09/21/2023 09/21/2023 09/21/2023 1:43 PM HALF SOLE FITTER COVID-19 Rule Out 09/22/2024 09/22/2024 09/22/2024 1:08 PM HALF SOLE FITTER COVID-19 Rule Out 12/02/2024 12/02/2024 12/02/2024 11:49 AM HALF SOLE FITTER Respiratory Rule Out 04/08/2025 04/08/2025 025 2:24 PM CDT documented as of this encounter Care Teams Cost Recovery Technician Relationship Specialty Start Date End Date Cait Hoover MD PCP - General INTERNAL MEDICINE 04/13/16 01/04/20 Carl Vasquez MD [facility] [place] [address] PCP - General FAMILY PRACTICE 01/05/20 02/19/20 Cait Hoover MD [address] [place] [phone] PCP - General INTERNAL MEDICINE 02/20/20 12/26/22 Ruby Solomon APRN [address] [address] PCP - General NURSE PRACTITIONER 12/27/22 Aris Justin MD [facility]. [facility] [address] [place] [address] [place] [employer] Dies Loader CARDIOVASCULAR DISEASE 05/06/16 Zina Butt, PA [facility]. [facility] [address] [place] [address] GYNECOLOGY 03/09/18 Macy Law FNP [address] 5 [place] [address] Psychiatry 03/09/18 documented as of this encounter
--- OUTSIDE RECORDS SUMMARY | 2025-09-26 00:13 | XMS_ITS | Encounter Summary ---
Author Organization [facility] Address [address] [place] [address] Care Team Providers Care Financial Supervisor Name Role Phone Cait Hoover MD Primary Care Provider + [phone] Aris Justin MD Unavailable [phone] Zina Butt PA Unavailable [phone] M[employer] CIRCUIT MANAGER Unavailable [phone] Carl Vasquez MD Primary Care Provider [phone] Cait Hoover MD Primary Care Provider + [phone] Ruby Solomon APRN Primary Care Provider + [phone] Encounter Details Date Type Department Care Team (Late st Contact Info) Description 12/07/2015 Abstract [facility] CONVERSION [address] [place] [address] , Davidson Patel MD Social History Tobacco Use Types Packs/Day Years Used Date Smoking Tobacco: Never Assessed Comments Unknown Sex and Gender Information Value Date Recorded Sex Assigned at Female 10/23/2023 5:08 PM LARGE ANIMAL HUSBANDRY TECHNICIAN Legal Sex Female 12:47 AM CDT Gender Identity Female 10/23/2023 5:08 PM LARGE ANIMAL HUSBANDRY TECHNICIAN Sexual Orientation Straight 10/23/2023 5: 08 PM LARGE ANIMAL HUSBANDRY TECHNICIAN documented as of this encounter Plan of Treatment Upcoming Encounters Date Type Department Care Team (Late st Contact Info) Description 10/05/2025 10:55 AM LARGE ANIMAL HUSBANDRY TECHNICIAN Allied Health/Nurse [facility] [address] [place] [address] Aris Justin MD Three [facility]. [facility] [address] [place] [address] 11/13/2025 9:20 AM LARGE ANIMAL HUSBANDRY TECHNICIAN Office Visit [facility] Medical Group Family & Internal Medicine - [place] [address] [place] [address] [place] [address] [facility] [address] [place], [place] [phone] 12/28/2025 9:30 AM LARGE ANIMAL HUSBANDRY TECHNICIAN [facility] [address] [place] [address] Radha Loza, CIRCUIT MANAGER 3 [facility] [address] [place] [address] documented as of this encounter Visit Diagnoses Not on filedocumented in this encounter Additional Health Concerns Infection Onset Date Last Indicated Resolved Time COVID-19 Rule Out 09/21/2023 09/21/2023 09/21/2023 1:43 PM LARGE ANIMAL HUSBANDRY TECHNICIAN COVID-19 Rule Out 09/22/2024 09/22/2024 09/22/2024 1:08 PM LARGE ANIMAL HUSBANDRY TECHNICIAN COVID-19 Rule Out 12/02/2024 12/02/2024 12/02/2024 11:49 AM LARGE ANIMAL HUSBANDRY TECHNICIAN Respiratory Rule Out 04/08/2025 04/08/2025 025 2:24 PM CDT documented as of this encounter Care Teams Financial Supervisor Relationship Specialty Start Date End Date Cait Hoover MD PCP - General INTERNAL MEDICINE 04/13/16 01/04/20 Carl Vasquez MD [facility]6 [place] [phone] PCP - General FAMILY PRACTICE 01/05/20 02/19/20 Cait Hoover MD [address] [place] [address] PCP - General INTERNAL MEDICINE 02/20/20 12/26/22 Ruby Solomon APRN [address] [address] PCP - General NURSE PRACTITIONER 12/27/22 Aris Justin MD Three [facility]. [address] [address] [place] [employer]er [employer] Form CARDIOVASCULAR DISEASE 05/06/16 Zina Butt, PA Three [facility]. [address] [address] GYNECOLOGY 03/09/18 Macy Law FNP [address] [address] Psychiatry 03/09/18 documented as of this encounter
--- OUTSIDE RECORDS SUMMARY | 2025-09-26 00:13 | XMS_ITS | Encounter Summary ---
Author Organization [facility] Address [address] [place] [address] Care Team Providers Care Temperature Logging Operator Name Role Phone Cait Hoover MD Primary Care Provider + [phone] Aris Justin MD Unavailable [phone] Zina Butt PA Unavailable [phone] Macy Law SOLUTION DESIGN ENGINEER Unavailable [phone] Carl Vasquez MD Primary Care Provider [phone] Cait Hoover MD Primary Care Provider + [phone] Ruby Solomon APRN Primary Care Provider + [phone] Encounter Details Date Type Department Care Team (Late st Contact Info) Description 12/19/2016 Abstract [facility] AT [address] [address] Suzan Gee MA Social History Tobacco Use Types Packs/Day Years Used Date Smoking Tobacco: Former Cigarettes Q uit: 07/2015 Smokeless Tobacco: Never Alcohol Use Standard Drinks/Week Comments No 0 (1 standard drink = 0.6 oz pur e alcohol) Comments Unknown Sex and Gender Information Value Date Recorded Sex Assigned at Female 10/23/2023 5:08 PM ASSOCIATE PRODUCER Legal Sex Female 12:47 AM CDT Gender Identity Female 10/23/2023 5:08 PM ASSOCIATE PRODUCER Sexual Orientation Straight 10/23/2023 5: 08 PM ASSOCIATE PRODUCER Occupation Industry Job Start Date Job End Date Not on file Not on file Not on file Not on file documented as of this encounter Progress Notes * LONG Hughes - 12/25/2017 7:52 AM CST PG pt send letter continue current meds CIATE PRODUCER documented in this encounter Plan of Treatment Upcoming Encounters Date Type Department Care Team (Late st Contact Info) Description 10/05/2025 10:55 AM ASSOCIATE PRODUCER Allied Health/Nurse Visit [facility] THREE [facility], [facility] [address] [place], [place] [id number] Aris Justin MD Three [facility]. [facility] [address] [place], [place] [address] 11/13/2025 9:20 AM ASSOCIATE PRODUCER Office Visit [facility] Medical Group Family & Internal Medicine - [place] [address] [place] [phone] Ruby Solomon APRN [address] [phone] 12/28/2025 9:30 AM ASSOCIATE PRODUCER Office Visit [facility] [address] [place] [address] Radha Loza FNP 3 [facility] [address] [place], [place] [phone] documented as of this encounter Procedures Procedure Name Priority Date/Time Associated Diagnosis Comments CBC (OUTSIDE LAB) Routine 11/28/2017 COMPREHENSIVE METABOLIC PANEL Routine 11/28/2017 THYROID STIM HORMONE TSH Routine 11/28/2017 CBC (OUTSIDE LAB) Routine 01/30/2017 COMPREHENSIVE METABOLIC PANEL Routine 01/30/2017 THYROID STIM HORMONE TSH Routine 01/27/2017 CBC (OUTSIDE LAB) Routine 12/12/2016 COMPREHENSIVE METABOLIC PANEL Routine 12/12/2016 CKMB(MB FRACTION ONLY) Routine 12/12/2016 TROPONIN, QUANT Routine 12/12/2016 CK (CPK) Routine 12/12/2016 documented in this encounter Results * THYROID STIM HORMONE, TSH (11/28/2017) TSH 1.90 11/28/2017 us Doc [facility] Abstract LABORATORY Final Result * COMPREHENSIVE METABOLIC PANEL (11/28/2017) SODIUM S/P/B 138 POTASSIUM S/P/B 4.3 CO2 27 CHLORIDE S/P/B 99 GLUCOSE 222 mg/dL CALCIUM S/P/B 9.8 BUN 9 CREATININE S/P/B 0.64 0.5 - 1.0 EGFR NON-AFR. AMER. >60 <=90 ALKALINE PHOSPHATASE S/P/B 147 ALT 36 AST 45 BILIRUBIN TOTAL S/P/B 0.3 ALBUMIN S/P/B 4.3 3.5 - 5.0 TOTAL PROTEIN S/P/B 6.8 11/28/2017 us Doc [facility] Abstract LABORATORY Edited Resul t - Final * CBC (OUTSIDE LAB) (11/28/2017) WBC 9.1 HGB 13.5 HCT 41.7 PLT 318 11/28/2017 us Doc [facility] Abstract LAB-OUTSIDE/ABSTRACTED Final Result * COMPREHENSIVE METABOLIC PANEL (01/30/2017) SODIUM S/P/B 139 POTASSIUM S/P/B 4.5 CO2 25 CHLORIDE S/P/B 105 GLUCOSE 132 mg/dL CALCIUM S/P/B 9.2 BUN 10 CREATININE S/P/B 0.68 0.5 - 1.0 EGFR NON-AFR. AMER. >60 <=90 ALKALINE PHOSPHATASE S/P/B 132 ALT 25 AST 27 BILIRUBIN TOTAL S/P/B 0.3 ALBUMIN S/P/B 4.1 3.5 - 5.0 TOTAL PROTEIN S/P/B 6.9 01/30/2017 us Doc [facility] Abstract LABORATORY Final Result * CBC (OUTSIDE LAB) (01/30/2017) WBC 7.6 HGB 12.7 HCT 38.5 PLT 311 01/30/2017 us Doc [facility] Abstract LAB-OUTSIDE/ABSTRACTED Final Result * THYROID STIM HORMONE, TSH (01/27/2017) TSH 0.65 01/27/2017 us Doc [facility] Abstract LABORATORY Final Result * TROPONIN, QUANT (12/12/2016) TROPONIN I 0 12/12/2016 us Doc [facility] Abstract LABORATORY Final Result * CPK, MB FRACTION (12/12/2016) CK-MB 1.3 12/12/2016 us Doc [facility] LABORATORY Edited Resul t - Final * CK (CPK) (12/12/2016) CPK 190 12/12/2016 us Doc [facility] LABORATORY Edited Resul t - Final * COMPREHENSIVE METABOLIC PANEL (12/12/2016) SODIUM S/P/B 139 POTASSIUM S/P/B 4.1 CO2 24 CHLORIDE S/P/B 103 GLUCOSE 137 CALCIUM S/P/B 9.4 BUN 15 CREATININE S/P/B 0.68 0.5 - 1.0 EGFR NON-AFR. AMER. >60 <=90 ALKALINE PHOSPHATASE S/P/B 115 ALT 21 AST 20 BILIRUBIN TOTAL S/P/B 0.3 ALBUMIN S/P/B 4.0 3.5 - 5.0 TOTAL PROTEIN S/P/B 6.8 12/12/2016 us Doc [facility] Abstract LABORATORY Final Result * CBC (OUTSIDE LAB) (12/12/2016) WBC 9.0 HGB 12.5 HCT 36.3 PLT 359 12/12/2016 us Doc [facility] Abstract LAB-OUTSIDE/ABSTRACTED Edite d Result - Final documented in this encounter Visit Diagnoses Not on filedocumented in this encounter Additional Health Concerns Infection Onset Date Last Indicated Resolved Time COVID-19 Rule Out 09/21/2023 09/21/2023 09/21/2023 1:43 PM ASSOCIATE PRODUCER COVID-19 Rule Out 09/22/2024 09/22/2024 09/22/2024 1:08 PM ASSOCIATE PRODUCER COVID-19 Rule Out 12/02/2024 12/02/2024 12/02/2024 11:49 AM ASSOCIATE PRODUCER Respiratory Rule Out 04/08/2025 04/08/2025 025 2:24 PM CDT documented as of this encounter Care Teams Temperature Logging Operator Relationship Specialty Start Date End Date Cait Hoover MD PCP - General INTERNAL MEDICINE 04/13/16 01/04/20 Carl Vasquez MD [facility]6 [place] [phone] PCP - General FAMILY PRACTICE 01/05/20 02/19/20 Cait Hoover MD [facility]6 [place] [address] PCP - General INTERNAL MEDICINE 02/20/20 12/26/22 Ruby Solomon APRN [address] [id number] PCP - General NURSE PRACTITIONER 12/27/22 Aris Justin MD [facility]. [address] [address] [place] Belt Picker CARDIOVASCULAR DISEASE 05/06/16 Zina Butt, PA Three [facility]. [address] [address] GYNECOLOGY 03/09/18 Macy Law FNP [address] [address] Psychiatry 03/09/18 documented as of this encounter
[2025-09-26 00:16] VITALS: PULSE 75; RESP 19; O2SAT 97
[2025-09-26 00:21] VITALS: BP 138/58; PULSE 71; RESP 15; O2SAT 98
[2025-09-26] MEDS: CEPHALEXIN 500 MG CAPSULE PO (00:23)
[2025-09-26] MEDS: NAPROXEN 500 MG TABLET PO (00:23)
[2025-09-26] MEDS: ACETAMINOPHEN 500 MG TABLET 1000 MG PO (00:23)
== END 2025-09-26 00:37 | disposition home or self-care (01) ==
LOC: ANHED 09-26 00:10
PROVIDERS: Emergency Provider Student in an Organized Health Care Education/Training Program; PCP Registered Nurse
DX: S40.861A Insect bite (nonvenomous) of right upper arm, initial encounter (principal); I25.10 Atherosclerotic heart disease of native coronary artery without angina pectoris; E11.9 Type 2 diabetes mellitus without complications; I10 Essential (primary) hypertension; W57.XXXA Bitten or stung by nonvenomous insect and other nonvenomous arthropods, initial encounter
CPT/HCPCS: 99283; A9270